=== PATIENT | female | born 1945 | race Caucasian/White ===

== ENCOUNTER 2018-09-21 20:32 | Emergency (ER) | payer OTHER ==
[2018-09-21 20:41] VITALS: BMI 30.4
--- NOTE | 2018-09-21 22:37 | PDOC ---
History of Present Illness - General Chief Complaint: Pain, Acute Stated Complaint: ABD & BACK PAIN Time Seen by Provider: 09/21/18 22:31 - History of Present Illness Initial Comments: 09/21/18 22:36 73 yo F with h/o tubal ligation, appendectomy who p/w right lower back/flank, and abdominal pain. Patient reports 1 week of worsening right lower back pain radiating, to RLQ abdomen. Pain characterized as crampy, spasmodic, intermittent. Endorses 3 days decreased appeitie, decreased stools, decreased PO intake. Pain slightly improved with urination. Reports increased urination. Recently evaluated by PMD Dr. Pedro Funes treated for UTI day 3 of 7 Levaquin 500 mg. Reports h/o revcurrent UTI. Patient denies HOLM, vision change, palpitations, cough, wheezing, orthopena, PND , leg swelling/pain, N/V, F,C, CP, SOB, urinary complaints, hematuria, BPR, diarrhea,lightheadedness, weakness, sensory changes. PMHx: as noted above ROS: as noted SHx: Denies Etoh, IVDA, tobacco use Allergies: NKDA PMD: Dr. Funes Past History - Past Medical History Allergies/Adverse Reactions: Allergies Allergy/AdvReac Type Severity Reaction Status Date / Time nitrofurantoin Allergy Severe Low Blood Verified 09/21/18 20:40 [Nitrofurantoin] Pressure Home Medications: Ambulatory Orders Multivitamin [Multivitamins] 1 tab PO DAILY 10/05/11 Sulfamethoxazole/Trimethoprim [Bactrim Ds -] 1 tab PO BID #14 tablet 09/22/18 Anemia: Yes Asthma: No Cancer: No Cardiac Disorders: Yes ("LEAKY VALVE") CVA: No COPD: No CHF: No Dementia: No Diabetes: No GI Disorders: No Disorders: No HTN: Yes (NOT ON MEDICATION,BORDERLINE) Hypercholesterolemia: No Liver Disease: No Seizures: No Thyroid Disease: No - Surgical History Abdominal Surgery: No Appendectomy: Yes (1961) Cardiac Surgery: No Cholecystectomy: No Lung Surgery: No Neurologic Surgery: No Orthopedic Surgery: Yes (SPINAL FUSION 2006,RIGHT KNEE PARTIAL REPLACEMENT 2008) - Suicide/Smoking/Psychosocial Hx Smoking History: Never smoked Have you smoked in the past 12 months: No Hx Alcohol Use: No Drug/Substance Use Hx: No Substance Use Type: None Hx Substance Use Treatment: No Review of Systems - Review of Systems Comments:: 09/21/18 22:36 GENERAL/CONSTITUTIONAL: No fever or chills. No weakness. HEAD, EYES, EARS, NOSE AND THROAT: No change in vision. No ear pain or discharge. No sore throat. CARDIOVASCULAR: No chest pain or shortness of breath RESPIRATORY: No cough, wheezing, or hemoptysis. GASTROINTESTINAL: + nausea, RLQ abdominal and R flank pain. No vomiting, diarrhea GENITOURINARY: No dysuria, frequency, or change in urination. MUSCULOSKELETAL: No joint or muscle swelling or pain. No neck or back pain. SKIN: No rash NEUROLOGIC: No headache, vertigo, loss of consciousness, or change in strength/ sensation. ENDOCRINE: No increased thirst. No abnormal weight change HEMATOLOGIC/LYMPHATIC: No anemia, easy bleeding, or history of blood clots. ALLERGIC/IMMUNOLOGIC: No hives or skin allergy. *Physical Exam - Vital Signs Last Vital Signs Temp Pulse Resp BP Pulse Ox 97.7 F 100 H 18 156/72 98 09/21/18 20:38 09/21/18 20:38 09/21/18 20:38 09/21/18 20:38 09/21/18 20:38 - Physical Exam Comments: 09/21/18 22:36 GENERAL: Awake, alert, and fully oriented, in no acute distress HEAD: No signs of trauma, normocephalic, atraumatic EYES: PERRLA, EOMI, sclera anicteric, conjunctiva clear ENT: Auricles normal inspection, hearing grossly normal, nares patent, oropharynx clear without exudates. Moist mucosa NECK: Normal ROM, supple, no lymphadenopathy, JVD, or masses LUNGS: No distress, speaks full sentences, clear to auscultation bilaterally HEART: Regular rate and rhythm, normal S1 and S2, no murmurs, rubs or gallops, peripheral pulses normal and equal bilaterally. ABDOMEN: + RLQ, flank, and suprpapubic ttp. Soft, normoactive bowel sounds. No guarding, no rebound. No masses EXTREMITIES : Normal inspection, Normal range of motion, no edema. No clubbing or cyanosis. NEUROLOGICAL: Cranial nerves II through XII grossly intact. Normal speech, normal gait, no focal sensorimotor deficits SKIN: Warm, Dry, normal turgor, no rashes or lesions noted ED Treatment Course - LABORATORY CBC & Chemistry Diagram: 09/21/18 23:50 09/21/18 23:50 - ADDITIONAL ORDERS Additional order review: 09/22/18 02:03 Patient Information: : 1945 Order Type: Preliminary Name: YANCY DE LOS SANTOS Sex: F Study Description: CT ABDOMEN AND PELVIS Modality: CT Location: [facility] Referring Physician: YAN LYNCH Comments: Sina Rojo MD wrote on Sep 22, 2018 at 01:39 AM: Referring Physician: YAN LYNCH Patient Name: MAGALI HAINES THIS IS A PRELIMINARY REPORT FROM [facility] DATE OF SERVICE: 2018-09-22 01:21:38 IMAGES: [id number] EXAM: ABDOMEN \\T\\ PELVIS CT W/O CONTR HISTORY: Stones COMPARISON: None. FINDINGS: Lung bases are clear. The visualized cardiac chambers are normal size and configuration. Normal unenhanced liver, gallbladder, pancreas, spleen, adrenal glands and kidneys. The stomach and abdominal small and large bowel are normal. There is no aortic aneurysm. There is no significant retroperitoneal lymphadenopathy. The pelvic small and large bowel are normal. There is no evidence of appendicitis, though the appendix is not visualized. The uterus and adnexal structures are normal. Urinary bladder is unremarkable. There is no pelvic free fluid. No discrete pelvic lymphadenopathy is identified. CONFIDENTIALITY NOTICE: This information is intended only for the use of the recipient(s) named above. If you are not the intended recipient, or a person responsible for delivering it to the intended recipient, you are hereby notified that any disclosure, copying, distribution or use of any of the information contained in or attached to this transmission is STRICTLY PROHIBITED. If you have received this transmission in error, please immediately notify [facility] and destroy the original transmission and its attachments without saving them in any manner [address] [facility] [address] [place] [address] Phone: [phone]) Fax: Email: [email or web address]: [email or web address] Patient Information: : 1945 Order Type: Preliminary Name: YANCY DE LOS SANTOS Sex: F Study Description: CT ABDOMEN AND PELVIS Modality: CT Location: [facility] Referring Physician: YAN LYNCH IMPRESSION: No acute pathology. One or more of the following dose reduction techniques were used: automated exposure control, adjustment of the mA and/or kV according to patient size, use of iterative reconstructive technique. THIS DOCUMENT HAS BEEN ELECTRONICALLY SIGNED Ga Rojo MD 09/22/2018 01:38 MARY CARMEN Cifuentes. Please call Imaging Carousel Operator [phone] with questions. Sina Rojo MD Clinicians - Please contact Imaging Carousel Operator with further questions at [phone]) Patients - Please contact your Ordering Provider with questions. Medical Decision Making - Medical Decision Making 09/21/18 22:36 73 yo F with h/o spinal fusion, tubal ligation, appendectomy who p/w 1 week of crampy, right lower back/flank, and abdominal pain. HR 100, vitals otherwise wnl , AF, A&Ox3. Physical exam notable for RLQ abdominal and suprapubic ttp. Will assess for nephrolithasisi, obstructive uropathy, colitis, cystitis. Pt. non toxic appearing, absent CVA ttp. Will provide analgesic control, hydration, reassess. ED Course: 09/21/18 23:07 Laboratory Tests 09/21/18 09/21/18 09/21/18 00:00 23:50 23:50 WBC 5.7 Hgb 12.1 Hct 36.7 Plt Count 169 Sodium 142 Potassium 4.5 BUN 21.0 H Creatinine 0.9 Urine Color Yellow Urine Blood Negative Urine Nitrite Negative Ur Leukocyte Esterase 1+ H Urine WBC (Auto) 12 Urine RBC (Auto) 2 CTAP: Unremarkable Patient stable for d/c with return precautions Advised to d/c Levaquin. Bactrim 500 mg *DC/Admit/Observation/Transfer Diagnosis at time of Disposition: Right flank discomfort - Discharge Dispostion Condition at time of disposition: Stable - Prescriptions Prescriptions: Sulfamethoxazole/Trimethoprim [Bactrim Ds -] 1 tab PO BID #14 tablet - Referrals Referrals: Pedro Funes MD [Primary Care Provider] - - Patient Instructions Printed Discharge Instructions: DI for Flank Pain Additional Instructions: Please return to the emergency department with any new or worsening symptoms or concerns. Please follow up with your primary care physician within 72 hours. Please take Bactrim two times a day for 7 days. Discontinue/stop taking Levaquin. - Post Discharge Activity
[2018-09-21] MEDS ORDERED: SODIUM CHLORIDE 1,000 ML IV STA (23:05)
[2018-09-21] MEDS ORDERED: KETOROLAC TROMETHAMINE 30 MG/1 ML VIAL IVPUSH ONE (23:05)
[2018-09-21] MEDS ORDERED: ONDANSETRON 4 MG/2 ML VIAL IVPB ONE (23:06)
[2018-09-21] MEDS ORDERED: KETOROLAC TROMETHAMINE 30 MG/1 ML VIAL ONE (23:32)
[2018-09-21] MEDS ORDERED: ONDANSETRON 4 MG/2 ML VIAL ONE ×2 (23:32)
[2018-09-22 00:04] LABS: BASO % 0.4 % (0-2.0); EOS % 1.2 % (0-4.5); HEMATOCRIT 36.7 % (32.4-45.2); HEMOGLOBIN 12.1 GM/dL (10.7-15.3); LYMPH % 23.7 % (8-40); MCHC 32.8 g/dl (32.0-36.0); MEAN CELL VOLUME 88.3 fl (80-96); MEAN PLT VOLUME 8.7 fl (7.5-11.1); MONO % 9.3 % (3.8-10.2); NEUT % 65.4 % (42.8-82.8); PLATELET COUNT 169 K/MM3 (134-434); RBC 4.16 M/mm3 (3.60-5.2); RDW 13.3 % (11.6-15.6); WHITE BLOOD COUNT 5.7 K/mm3 (4.0-10.0)
[2018-09-22 00:10] LABS: EPI CELLS 2.7 /HPF (0-5/HPF); HYALINE CASTS 9 /lpf (0-8); URINE APPEARANCE CLEAR; URINE BACTERIA 2.7 /hpf (NEGATIVE); URINE BILIRUBIN NEGATIVE (NEGATIVE); URINE COLOR YELLOW; URINE GLUCOSE (UA) NEGATIVE (NEGATIVE); URINE KETONE NEGATIVE (NEGATIVE); URINE LEUK ESTERASE 1+ (NEGATIVE); URINE NITRITE NEGATIVE (NEGATIVE); URINE PROTEIN NEGATIVE (NEGATIVE); URINE RBC 2 /hpf (0-4); URINE WBC 12 /hpf (0-5)
[2018-09-22 00:31] LABS: ALBUMIN 3.9 g/dl (3.4-5.0); BILIRUBIN,TOTAL 0.4 mg/dL (0.2-1); CALCIUM 9.1 mg/dL (8.5-10.1); CREATININE 0.9 mg/dL (0.55-1.3); POTASSIUM 4.5 mmol/L (3.5-5.1); TOT PROT 7.9 g/dl (6.4-8.2)
[2018-09-22 00:42] VITALS: PULSE 80
--- NOTE | 2018-09-22 01:52 | PDOC ---
Documentation entered by Peter Hugo SCRIBE, acting as scribe for Teodoro Chappell MD. Teodoro Chappell MD: This documentation has been prepared by the [facility] Elijah, SCRIBE, under my direction and personally reviewed by me in its entirety. I confirm that the documentation accurately reflects all work, treatment, procedures, and medical decision making performed by me. Attending Attestation - Resident Resident Name: Venancio Page - ED Attending Attestation I have performed the following: I have examined & evaluated the patient, The case was reviewed & discussed with the resident, I agree w/resident's findings & plan, Exceptions are as noted - HPI HPI: 09/22/18 00:25 The patient is a 73 year old female with a significant past medical history of tubal ligation, appendectomy, and recurrent UTIs who presents to the ED with right flank pain radiating around to the RLQ over the last week. The patient describes the pain as crampy and intermittent, a/w anorexia but no N/V. The patient went to her PCP for the pain and was given a course of Levaquin for UTI with no improvement in sxs. Last BM was 3 days ago which is abnormal for pt but she is passing flatus. States she normally has a daily BM. Patient reports pain improves upon urination. She denies fevers, chills, hematuria, dysuria. Denies headache, dizziness, weakness, numbness, cp, sob, LE edema, rashes. Denies hx similar pain. Allergies: Nitrofurantoin PCP: Dr. Funes - Physicial Exam PE: 09/22/18 01:28 GENERAL: Awake, alert, and fully oriented, in no acute distress. Well appearing. EYES: PERRLA, EOMI, sclera anicteric, conjunctiva clear ENT: Nares patent, oropharynx clear without exudates. Moist mucosa NECK: Normal ROM, supple, no lymphadenopathy, JVD, or masses LUNGS: Breath sounds equal, clear to auscultation bilaterally. No wheezes, and no crackles HEART: Regular rate and rhythm, normal S1 and S2, no murmurs, rubs or gallops ABDOMEN: Soft, nontender, normoactive bowel sounds. No guarding, no rebound. No masses : No CVAT EXTREMITIES: Normal range of motion, no edema. No cords, erythema, or tenderness. WWP. 2+ pulses in all extremities NEUROLOGICAL: Normal speech, cranial nerves intact, 5/5 strength in all 4 extremities, normal sensation to light touch in all 4 extremities, normal cerebellar exam, normal gait, normal tone SKIN: Warm, Dry, normal turgor, no rashes or lesions noted. - Medical Decision Making 09/22/18 01:29 73yo F presents to the ED with 1 week of R flank radiating to RLQ pain Vitals unremarkble Exam unremarkable, no abd ttp CTAP obtained to r/o kidney stone, negative for acute pahtology UA + for 12 whites, +LE possible failure levaquin Will switch to bacrim, treat for uncomplicated pyelo Pt tolerating PO Pt feels much better, requests DC home has f/u with Dr. Francisco scheduled I discussed the physical exam findings, ancillary test results and final diagnoses with the patient. I answered all of the patient's questions. The patient was satisfied with the care received and felt comfortable with the discharge plan and treatment plan. The patient will call their primary care physician within 24 hours to arrange follow-up and will return to the Emergency Department with any new, persistent or worsening symptoms.
[2018-09-22] MEDS ORDERED: SULFAMETHOXAZOLE/TRIMETHOPRIM 800MG/160MG D.S. TABLET PO ONE (01:59)
[2018-09-22] MEDS ORDERED: SULFAMETHOXAZOLE/TRIMETHOPRIM 800MG/160MG D.S. TABLET ONE (02:10)
[2018-09-22 02:18] VITALS: BP 128/62; TEMP 98
--- NOTE | 2018-09-22 13:38 | EKG ---
Test Reason : Blood Pressure : / mmHG Vent. Rate : 082 BPM Atrial Rate : 082 BPM P-R Int : 190 ms QRS Dur : 102 ms QT Int : 392 ms P-R-T Axes : 059 -51 065 degrees QTc Int : 457 ms NORMAL SINUS RHYTHM INCOMPLETE RIGHT BUNDLE BRANCH BLOCK LEFT ANTERIOR FASCICULAR BLOCK MODERATE VOLTAGE CRITERIA FOR LVH, MAY BE NORMAL VARIANT ABNORMAL ECG WHEN COMPARED WITH ECG OF 18-OCT-1997 14:20, NONSPECIFIC T WAVE ABNORMALITY, IMPROVED IN LATERAL LEADS QT HAS LENGTHENED Confirmed by MARIANN PEOPLES, CHELSEA ([id number]) on 09/22/2018 1:38:20 PM Referred By: Confirmed By:CHELSEA WAITE MD
== END 2018-09-22 02:40 | disposition home or self-care (01) ==
LOC: JER 20:32
PROC: 3E0337Z Introduction of Electrolytic and Water Balance Substance into Peripheral Vein, Percutaneous Approach (ICD-10-PCS; principal; 2018-09-21)
PROC: 3E033GC Introduction of Other Therapeutic Substance into Peripheral Vein, Percutaneous Approach (ICD-10-PCS; 2018-09-21)
PROC: 3E0333Z Introduction of Anti-inflammatory into Peripheral Vein, Percutaneous Approach (ICD-10-PCS; 2018-09-21)
DX: N12 Tubulo-interstitial nephritis, not specified as acute or chronic (principal); Z87.440 Personal history of urinary (tract) infections; I10 Essential (primary) hypertension
CPT/HCPCS: 36415; 74176-TC; 80053; 81003; 85025; 87086; 93005; 93010; 99282-25; J7030

== ENCOUNTER 2022-06-29 04:39 | Day surgery (SDC) | payer OTHER ==
[2022-06-23 12:21] VITALS: BMI 27.6
[2022-06-29] MEDS ORDERED: MIDAZOLAM HCL 2 MG/2 ML SINGLE DOSE VIAL ONE (11:01)
[2022-06-29] MEDS ORDERED: PROPOFOL 20 ML ONE (11:01)
[2022-06-29] MEDS ORDERED: oxyCODONE HCL 5 MG TABLET PO PRN (11:05)
[2022-06-29] MEDS ORDERED: ONDANSETRON 4 MG/2 ML VIAL IVPUSH PRN (11:05)
[2022-06-29] MEDS ORDERED: LACTATED RINGERS SOLUTION 1,000 ML IV SCH (11:15)
[2022-06-29] MEDS ORDERED: ONDANSETRON 4 MG/2 ML VIAL ONE ×2 (11:30→13:32)
[2022-06-29] MEDS ORDERED: DEXAMETHASONE SOD PHOSPHATE 4 MG/1 ML VIAL ONE (11:30)
[2022-06-29] MEDS ORDERED: ceFAZolin SODIUM 1 GM VIAL IVPB ONE (11:41)
[2022-06-29] MEDS ORDERED: ceFAZolin SODIUM 1 GM VIAL ONE (11:42)
[2022-06-29 12:43] VITALS: RESP 18
[2022-06-29 14:45] VITALS: BP 116/56; PULSE 75; TEMP 97.3
== END 2022-06-29 14:59 | disposition home or self-care (01) ==
LOC: JASU-SURG 04:39
PROVIDERS: ATTEND Obstetrics & Gynecology
PROC: 0UB98ZZ Excision of Uterus, Via Natural or Artificial Opening Endoscopic (ICD-10-PCS; principal; 2022-06-29 10:30)
DX: N84.0 Polyp of corpus uteri (principal)
CPT/HCPCS: 88305-TC; 88341-TC; 88342-TC; 94760